=== PATIENT | male | born 1955 | race Two or more races ===

== ENCOUNTER 2025-02-24 14:35 | Emergency (ER) | payer MEDICARE, MEDICAID, SELFPAY ==
[2025-02-24 14:37] VITALS: BP 145/85; PULSE 78; RESP 17; TEMP 36.7; O2SAT 96
[2025-02-24 14:51] VITALS: O2SAT 96; BMI 35.5
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
== END 2025-02-24 18:19 | disposition home or self-care (01) ==
PROVIDERS: Emergency Provider Registered Nurse General Practice; PCP Obstetrics & Gynecology
DX: S82.002A Unspecified fracture of left patella, initial encounter for closed fracture (principal); V49.40XA Driver injured in collision with unspecified motor vehicles in traffic accident, initial encounter; Y92.410 Unspecified street and highway as the place of occurrence of the external cause; E11.9 Type 2 diabetes mellitus without complications; I10 Essential (primary) hypertension
CPT/HCPCS: 71045; 72125; 73564; 73700; 99284; A9270

== ENCOUNTER 2025-03-22 13:34 | Outpatient (AMB) | payer MEDICARE, MEDICAID, SELFPAY ==
[2025-03-22 13:45] VITALS: BP 149/69; PULSE 69; RESP 18; TEMP 36.7; O2SAT 97; BMI 74.0
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
== END 2025-03-22 13:54 | disposition home or self-care (01) ==
LOC: HODSRG 13:34
PROVIDERS: PCP Obstetrics & Gynecology; Referring Provider Obstetrics & Gynecology; Supervising Provider Orthopaedic Surgery Adult Reconstructive Orthopaedic Surgery; Visit Provider Orthopaedic Surgery Adult Reconstructive Orthopaedic Surgery
DX: S82.002A Unspecified fracture of left patella, initial encounter for closed fracture (principal); V89.2XXA Person injured in unspecified motor-vehicle accident, traffic, initial encounter
CPT/HCPCS: 73560; 99203; G0463

== ENCOUNTER 2025-04-13 08:00 | Outpatient (AMB) | payer MEDICARE, MEDICAID, SELFPAY ==
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
[2025-04-13 08:09] VITALS: BP 110/70; PULSE 71; RESP 18; TEMP 37; O2SAT 97; BMI 35.3
== END 2025-04-13 08:23 | disposition home or self-care (01) ==
PROVIDERS: PCP Obstetrics & Gynecology; Referring Provider Obstetrics & Gynecology; Supervising Provider Orthopaedic Surgery Adult Reconstructive Orthopaedic Surgery; Visit Provider Orthopaedic Surgery Adult Reconstructive Orthopaedic Surgery
DX: S82.009D Unspecified fracture of unspecified patella, subsequent encounter for closed fracture with routine healing (principal); V49.9XXD Car occupant (driver) (passenger) injured in unspecified traffic accident, subsequent encounter
CPT/HCPCS: 99213; G0463